=== PATIENT | female | born 1950 | race Caucasian/White ===

== ENCOUNTER → 2017-08-21 | Outpatient (CLI) | payer MEDICARE, OTHER ==
[~2017-08-21] MED LIST: OMNIPAQUE 350 MG/ML, 150 ML BOTTLE ONE
[2017-08-21 10:12] LABS: ANION GAP 7 mmol/L (5-15); CALCIUM 8.8 mg/dL (8.5-10.1); CHLORIDE 103 mmol/L (98-107)
== END | disposition home or self-care (01) ==
LOC: CVU 09:43
PROVIDERS: ATTEND Internal Medicine Cardiovascular Disease
DX: I35.0 Nonrheumatic aortic (valve) stenosis (principal); I65.23 Occlusion and stenosis of bilateral carotid arteries; I70.0 Atherosclerosis of aorta; I11.9 Hypertensive heart disease without heart failure
CPT/HCPCS: 36415; 71275; 74174; 80048; 93880; 94060; 94726; 94729; Q9967

== ENCOUNTER 2017-09-10 11:04 | Inpatient (IN) | payer MEDICARE, OTHER ==
[~2017-09-10] VITALS: Ht 172.7 cm; Wt 111.6 kg
[2017-09-10] MEDS ORDERED: SODIUM CHLORIDE 0.9% 1,000 ML IV ONE (11:34)
[2017-09-10] MEDS ORDERED: PLEASE ENTER HEIGHT AND WEIGHT MC SCH (11:51)
[2017-09-10] MEDS ORDERED: ONDANSETRON 2MG/ML, 2ML IVPush PRN (12:00)
[2017-09-10] MEDS ORDERED: CHLORHEXIDINE 15 ML BOTTLE MM PRN (12:00)
[2017-09-10] MEDS ORDERED: PRED10TA PO (12:07)
[2017-09-10] MEDS ORDERED: VENL75CA6 PO (12:07)
[2017-09-10] MEDS ORDERED: VALS40TA2 PO (12:07)
[2017-09-10] MEDS ORDERED: CALC-545 PO (12:07)
[2017-09-10] MEDS ORDERED: INSU100I13 SC (12:07)
[2017-09-10] MEDS ORDERED: CHOL5000 PO (12:07)
[2017-09-10] MEDS ORDERED: L.AC1CAP6 PO (12:07)
[2017-09-10] MEDS ORDERED: VENL75TA2 PO (12:07)
[2017-09-10 12:23] LABS: BASOPHILS # (AUTO) 0.03 x10^3/uL (0-0.1); BASOPHILS % (AUTO) 0 % (0-1); EOSINOPHILS # (AUTO) 0.03 x10^3/uL (0-0.4); EOSINOPHILS % (AUTO) 0 % (1-7); LYMPHOCYTES % (AUTO) 12 % (22-44); MD NO; MEAN CORPUSCULAR HEMOGLOBIN 32.3 pg (27.0-34.8); MEAN CORPUSCULAR HGB CONC 34.8 g/dL (32.4-35.8); MEAN CORPUSCULAR VOLUME 92.8 fL (80-100); MEAN PLATELET VOLUME 7.3 fL (7.4-10.4); MONOCYTES # (AUTO) 0.22 x10^3/uL (0.2-0.8); MONOCYTES % (AUTO) 3 % (2-9); NEUTROPHILS # (AUTO) 6.49 x10^3/uL (1.8-6.8); NEUTROPHILS % (AUTO) 85 % (42-75); PLATELET COUNT 246 x10^3/uL (130-400); RED BLOOD COUNT 4.24 x10^6/uL (3.82-5.3); RED CELL DISTRIBUTION WIDTH 13.9 % (9.6-15.2)
[2017-09-10 12:32] LABS: ALANINE AMINOTRANSFERASE 32 U/L (12-78); ALBUMIN 3.9 g/dL (3.4-5.0); ANION GAP 10 mmol/L (5-15); CHLORIDE 101 mmol/L (98-107); CREATININE 0.85 mg/dL (0.55-1.02)
[2017-09-10] MEDS ORDERED: HEPARIN 1,000 UNITS/ML, 10ML ONE (12:33)
[2017-09-10] MEDS ORDERED: PROTAMINE SULFATE 10 MG/ML, 5ML ONE (12:33)
[2017-09-10] MEDS ORDERED: methylPREDNISolone SOD SUCC 125 MG/2 ML ONE (12:33)
[2017-09-10 12:36] LABS: ALKALINE PHOSPHATASE 64 U/L (45-117); BILIRUBIN,TOTAL 0.6 mg/dL (0.2-1.0); TOTAL PROTEIN 6.9 g/dL (6.4-8.2)
[2017-09-10] MEDS ORDERED: CEFAZOLIN 1,000 MG ONE (12:39)
[2017-09-10] MEDS ORDERED: ROCURONIUM 10MG/ML,5ML ONE (12:39)
[2017-09-10] MEDS ORDERED: GLYCOPYRROLATE 0.2MG/1ML, 5ML ONE (12:39)
[2017-09-10] MEDS ORDERED: PROPOFOL 10 MG/ML, 20ML ONE (12:39)
[2017-09-10] MEDS ORDERED: SUCCINYLCHOLINE 20 MG/ML, 10ML ONE (12:39)
[2017-09-10] MEDS ORDERED: PHENYLEPHRINE 10 MG/ML ONE (12:39)
[2017-09-10] MEDS ORDERED: NEOSTIGMINE 1 MG/ML, 10ML ONE (12:39)
[2017-09-10 12:44] LABS: INTERNATIONAL NORMALIZED RATIO 0.96 (0.93-1.1)
[2017-09-10] MEDS ORDERED: FENTANYL PF 250 MCG/5ML ONE (13:39)
[2017-09-10] MEDS ORDERED: LABETALOL 5MG/ML, 20ML ONE (14:02)
[2017-09-10] MEDS ORDERED: LABETALOL 5MG/ML, 20ML IVPush PRN (15:30)
[2017-09-10] MEDS ORDERED: hydrALAzine 20 MG/ML, 1ML IV PRN (15:30)
[2017-09-10] MEDS ORDERED: ACETAMINOPHEN 325 MG TABLET PO PRN ×2 (16:30→18:00)
[2017-09-10] MEDS ORDERED: hydrALAzine 20 MG/ML, 1ML IVPush PRN (18:00)
[2017-09-10] MEDS ORDERED: CLOPIDOGREL 300 MG TABLET PO ONE ×2 (18:00→21:00)
[2017-09-10] MEDS ORDERED: LABETALOL 20 MG/4 ML IVPush PRN (18:00)
[2017-09-10] MEDS: SODIUM CHLORIDE 0.9% 1,000 ML IV SCH (18:00)
[2017-09-10 20:31] VITALS: BP 115/73
[2017-09-10] MEDS ORDERED: INSULIN GLARGINE 100 UNITS/ML, PEN SQ-INSULIN SCH (21:00)
[2017-09-10] MEDS: INSULIN REGULAR 100 UNITS/ML, 3ML VIAL SQ-INSULIN SCH (21:38)
[2017-09-11 01:50] VITALS: BP 110/70
[2017-09-11] MEDS: SODIUM CHLORIDE 0.9% 1,000 ML IV SCH ×2 (04:00→14:00)
[2017-09-11 05:13] LABS: BASOPHILS % (AUTO) 0 % (0-1); EOSINOPHILS % (AUTO) 0 % (1-7); LYMPHOCYTES # (AUTO) 0.84 x10^3/uL (1-3.4); LYMPHOCYTES % (AUTO) 7 % (22-44); MD NO; MEAN CORPUSCULAR HEMOGLOBIN 32.7 pg (27.0-34.8); MEAN CORPUSCULAR HGB CONC 34.8 g/dL (32.4-35.8); MEAN CORPUSCULAR VOLUME 93.9 fL (80-100); MONOCYTES # (AUTO) 0.35 x10^3/uL (0.2-0.8); MONOCYTES % (AUTO) 3 % (2-9); NEUTROPHILS # (AUTO) 10.23 x10^3/uL (1.8-6.8); NEUTROPHILS % (AUTO) 90 % (42-75); PLATELET COUNT 264 x10^3/uL (130-400); RED BLOOD COUNT 4.22 x10^6/uL (3.82-5.3)
[2017-09-11 05:38] LABS: CHLORIDE 102 mmol/L (98-107)
[2017-09-11 05:44] LABS: ALBUMIN 3.7 g/dL (3.4-5.0); ANION GAP 13 mmol/L (5-15)
[2017-09-11 06:45] VITALS: BP 147/77
[2017-09-11] MEDS: INSULIN REGULAR 100 UNITS/ML, 3ML VIAL SQ-INSULIN SCH ×2 (08:00→11:58)
[2017-09-11] MEDS ORDERED: CLOPIDOGREL 75 MG TABLET PO SCH (09:00)
[2017-09-11] MEDS ORDERED: VENLAFAXINE 75 MG CAP ER PO SCH (09:00)
[2017-09-11] MEDS ORDERED: VALSARTAN 80 MG TABLET PO SCH (09:00)
[2017-09-11] MEDS ORDERED: ASPIRIN 81 MG TABLET EC PO SCH (09:00)
[2017-09-11] MEDS ORDERED: CALCIUM/VITAMIN D3 250-125 TABLET PO SCH (09:00)
[2017-09-11] MEDS ORDERED: LACTOBACILLUS CHEW TABLET PO SCH (09:00)
[2017-09-11] MEDS ORDERED: CHOLECALCIFEROL 1,000 UNIT TABLET PO SCH (09:00)
[2017-09-11] MEDS ORDERED: ASPI-621 PO (12:14)
[2017-09-11] MEDS ORDERED: CLOP75TA PO (12:14)
[2017-09-11 12:45] VITALS: BP 130/77
== END 2017-09-11 16:57 | disposition home or self-care (01) | DRG 266 ==
LOC: ORIP 11:04 → CCU 11:31 → 5SO 21:12
PROVIDERS: ADMIT Internal Medicine Cardiovascular Disease; ATTEND Internal Medicine Cardiovascular Disease
PROC: B24BZZ4 Ultrasonography of Heart with Aorta, Transesophageal (ICD-10-PCS; 2017-09-10)
PROC: 5A1223Z Performance of Cardiac Pacing, Continuous (ICD-10-PCS; 2017-09-10)
PROC: 02RF38Z Replacement of Aortic Valve with Zooplastic Tissue, Percutaneous Approach (ICD-10-PCS; principal; 2017-09-10 13:30)
DX: I35.0 Nonrheumatic aortic (valve) stenosis (principal); Z00.6 Encounter for examination for normal comparison and control in clinical research program; I50.33 Acute on chronic diastolic (congestive) heart failure; C43.9 Malignant melanoma of skin, unspecified; D86.0 Sarcoidosis of lung; E11.40 Type 2 diabetes mellitus with diabetic neuropathy, unspecified; I11.0 Hypertensive heart disease with heart failure; Z79.4 Long term (current) use of insulin
CPT/HCPCS: 33361; 36415; 80048; 80053; 82040; 82962; 83880; 85025; 85347; 85610; 85730; 86850; 86900; 86923; 87081; 93005; 93306; 93312; 93321; 93325; 93355; C1760; C1769; C1894; J0690; J1644; J1815; J2704; J2710; J2720; J3010; J3490; J0330; J2370; J2930; J7512; Q9967

== ENCOUNTER → 2017-10-08 | Outpatient (CLI) | payer MEDICARE, OTHER ==
[~2017-10-08] MED LIST changes: +ACETAMINOPHEN 325 MG TABLET PO PRN; +ASPI-621 PO; +ASPIRIN 81 MG TABLET EC PO SCH; +CALC-545 PO; +CHOL5000 PO; +CLOP75TA PO; +CLOPIDOGREL 300 MG TABLET PO ONE; +CLOPIDOGREL 75 MG TABLET PO SCH; +INSU100I13 SC; +INSULIN REGULAR 100 UNITS/ML, 3ML VIAL SQ-INSULIN SCH; +L.AC1CAP6 PO; +LABETALOL 20 MG/4 ML IVPush PRN; -OMNIPAQUE 350 MG/ML, 150 ML BOTTLE ONE; +PRED10TA PO; +SODIUM CHLORIDE 0.9% 1,000 ML IV SCH; +VALS40TA2 PO; +VENL75CA6 PO; +VENL75TA2 PO; +hydrALAzine 20 MG/ML, 1ML IVPush PRN
== END | disposition home or self-care (01) ==
LOC: CVU 12:26
PROVIDERS: ATTEND Internal Medicine Cardiovascular Disease
DX: I34.8 Other nonrheumatic mitral valve disorders (principal); E11.9 Type 2 diabetes mellitus without complications; I11.0 Hypertensive heart disease with heart failure; I50.9 Heart failure, unspecified; C43.9 Malignant melanoma of skin, unspecified; Z87.891 Personal history of nicotine dependence
CPT/HCPCS: 93306

== ENCOUNTER 2018-08-26 06:59 | Outpatient (CLI) | payer MEDICARE, OTHER ==
[~2018-08-26 06:59] MED LIST changes: -ACETAMINOPHEN 325 MG TABLET PO PRN; -ASPI-621 PO; +ASPI81TA45 PO; -ASPIRIN 81 MG TABLET EC PO SCH; -CLOPIDOGREL 300 MG TABLET PO ONE; -CLOPIDOGREL 75 MG TABLET PO SCH; -INSULIN REGULAR 100 UNITS/ML, 3ML VIAL SQ-INSULIN SCH; -LABETALOL 20 MG/4 ML IVPush PRN; -SODIUM CHLORIDE 0.9% 1,000 ML IV SCH; -hydrALAzine 20 MG/ML, 1ML IVPush PRN
== END 2018-08-26 23:59 | disposition home or self-care (01) ==
LOC: CVU 06:59
PROVIDERS: ATTEND Internal Medicine Cardiovascular Disease
DX: I08.8 Other rheumatic multiple valve diseases (principal); I11.9 Hypertensive heart disease without heart failure; E11.9 Type 2 diabetes mellitus without complications; Z95.2 Presence of prosthetic heart valve
CPT/HCPCS: 93306